=== PATIENT | male | born 2000 | race Two or more races ===

== ENCOUNTER 2024-04-15 15:26 | Inpatient (IN) | payer SELFPAY ==
[~2024-04-15] VITALS: Ht 160 cm; Wt 63.5 kg
[2024-04-15 15:49] LABS: BASOPHILS # (AUTO) 0.2 K/UL (0.0-0.2); BASOPHILS % (AUTO) 0.8 % (0.0-2.0); EOSINOPHILS # (AUTO) 0.1 K/uL (0.0-0.7); EOSINOPHILS % (AUTO) 0.5 % (0.0-7.0); HEMOGLOBIN 11.4 g/dL (12.5-16.3); LYMPHOCYTES # (AUTO) 2.1 K/uL (0.8-4.8); LYMPHOCYTES % (AUTO) 9.8 % (20.5-51.5); MEAN CORPUSCULAR HEMOGLOBIN 33.9 uug (23.8-33.4); MEAN CORPUSCULAR HGB CONC 35 g/dL (32.5-36.3); MEAN CORPUSCULAR VOLUME 98.2 fL (73.0-96.2); MONOCYTES # (AUTO) 1.4 K/uL (0.1-1.30); MONOCYTES % (AUTO) 6.6 % (0.0-11.0); NEUTROPHILS # (AUTO) 17.3 K/uL (1.8-8.9); NEUTROPHILS % (AUTO) 82.3 % (38.5-71.5); PLATELET COUNT (AUTO) 187 K/uL (152-348); RED BLOOD CELL COUNT(AUTO) 3.36 MIL/uL (4.06-5.63)
[2024-04-15 15:58] LABS: CARBON DIOXIDE 27 mmol/L (21-32); CHLORIDE 101 mmol/L (98-107); CREATININE 0.6 mg/dL (0.6-1.3); GLUCOSE 106 mg/dL (74-106); POTASSIUM 3.3 mmol/L (3.5-5.1); SODIUM SERUM 143 mmol/L (136-145); UREA NITROGEN, BLOOD 2 mg/dL (7-18)
[2024-04-15 16:00] LABS: DIFFERENTIAL COMMENT 1
[2024-04-15 16:07] LABS: ALANINE AMINOTRANSFERASE 110 U/L (16-63); ALBUMIN 2.8 g/dL (3.4-5.0); ALKALINE PHOSPHATASE 367 U/L (50-136); ASPARTATE AMINOTRANSFERASE 378 U/L (15-37); BILIRUBIN,DIRECT 0.5 mg/dL (0.0-0.2); BILIRUBIN,TOTAL 0.6 mg/dL (0.2-1.0); TOTAL PROTEIN, SERUM 9.6 g/dL (6.4-8.2)
[2024-04-15 16:08] LABS: ACETAMINOPHEN < 2.0 ug/mL (10-30)
[2024-04-15 16:10] LABS: LACTIC ACID 2.1 mmol/L (0.4-2.0)
[2024-04-15] MEDS: AZITHROMYCIN IV 500 MG in IV DEXTROSE 5% 250 ML IV ONE (16:30)
[2024-04-15] MEDS ORDERED: CEFTRIAXONE /D5W 50ML IVPB **ER PYXIS IV ONE (16:55)
[2024-04-15] MEDS ORDERED: AZITHROMYCIN 500MG/ D5W 250ML IVPB **ER PYXIS ONLY IV ONE (16:56)
[2024-04-15] MEDS: IV NORMAL SALINE 1000 ML BAG IV ONE (16:56)
[2024-04-15] MEDS: CEFTRIAXONE 1 G in IV DEXTROSE 5% 50 ML IV ONE (16:57)
[2024-04-15 17:40] LABS: *BILIRUBIN,URIN NEGATIVE (NEGATIVE); *BLOOD, URINE NEGATIVE (NEGATIVE); *CLARITY,URINE CLEAR (CLEAR); *COLOR,URINE YELLOW (YELLOW); *KETONES,URINE NEGATIVE (NEGATIVE); *PROTEIN,URINE NEGATIVE (NEGATIVE); *UROBILINOGEN,URINE 0.2 E.U./dl (NORMAL); LEUKOCYTE ESTERASE ,URINE NEGATIVE (NEGATIVE); NITRITE, URINE NEGATIVE (NEGATIVE); PH,URINE 6.5 (5.0-8.0); UGLUCOSE NEGATIVE (NEGATIVE)
[2024-04-15] MEDS ORDERED: REMEDY ESSENTIAL ZINC PASTE 113 GM TP PRN (19:30)
[2024-04-15] MEDS ORDERED: ONDANSETRON 4 MG/2 ML VIAL IV PRN (19:30)
[2024-04-15] MEDS ORDERED: ACETAMINOPHEN 325 MG TABLET PO PRN (19:30)
[2024-04-15 21:45] VITALS: BP 128/93; TEMP 98.7; O2SAT 95
[2024-04-15] MEDS ORDERED: VANCOMYCIN IV 200 ML ONE (21:57)
[2024-04-15] MEDS: IV LACTATED RINGERS SOLUTION 1,000 ML IV SCH (22:23)
[2024-04-15] MEDS: VANCOMYCIN IV 1,000 MG in IV NORMAL SALINE 250 ML IV ONE (22:39)
[2024-04-15 23:13] LABS: AMMONIA 283 umol/L (11-32)
[2024-04-15] MEDS ORDERED: THIAMINE HCL 200 MG/2 ML VIAL ONE ×2 (23:16→23:33)
[2024-04-15] MEDS: THIAMINE HCL 200 MG/2 ML VIAL IV ONE (23:35)
[2024-04-15 23:53] LABS: ETHANOL 567 MG/DL (0-10)
[2024-04-16] MEDS: CHLORDIAZEPOXIDE HCL 25 MG CAPSULE PO PRN (02:13)
[2024-04-16 03:19] VITALS: O2SAT 95
[2024-04-16 06:00] VITALS: BP 115/58; TEMP 98.4; O2SAT 95
[2024-04-16] MEDS: PANTOPRAZOLE SODIUM 40 MG TABLET.DR PO SCH (06:34)
[2024-04-16] MEDS: IV LACTATED RINGERS SOLUTION 1,000 ML IV PRN (06:35)
[2024-04-16 06:36] LABS: BASOPHILS # (AUTO) 0.1 K/UL (0.0-0.2); BASOPHILS % (AUTO) 0.7 % (0.0-2.0); EOSINOPHILS % (AUTO) 0.3 % (0.0-7.0); HEMATOCRIT 31.1 % (36.7-47.1); HEMOGLOBIN 10.7 g/dL (12.5-16.3); LYMPHOCYTES % (AUTO) 5.6 % (20.5-51.5); MEAN CORPUSCULAR HEMOGLOBIN 33.8 uug (23.8-33.4); MEAN CORPUSCULAR HGB CONC 34 g/dL (32.5-36.3); MEAN CORPUSCULAR VOLUME 98.3 fL (73.0-96.2); MONOCYTES # (AUTO) 0.8 K/uL (0.1-1.30); MONOCYTES % (AUTO) 4.4 % (0.0-11.0); PLATELET COUNT (AUTO) 142 K/uL (152-348); RED BLOOD CELL COUNT(AUTO) 3.17 MIL/uL (4.06-5.63); RED CELL DISTRIBUTION WIDTH 15.1 % (12.1-16.2)
[2024-04-16 06:48] LABS: ALANINE AMINOTRANSFERASE 100 U/L (16-63); ALBUMIN 2.6 g/dL (3.4-5.0); ALKALINE PHOSPHATASE 322 U/L (50-136); ASPARTATE AMINOTRANSFERASE 351 U/L (15-37); BILIRUBIN,DIRECT 0.5 mg/dL (0.0-0.2); BILIRUBIN,TOTAL 0.7 mg/dL (0.2-1.0); CALCIUM 7.1 mg/dL (8.5-10.1); CARBON DIOXIDE 28 mmol/L (21-32); CHLORIDE 100 mmol/L (98-107); CREATININE 0.5 mg/dL (0.6-1.3); GLUCOSE 90 mg/dL (74-106); MAGNESIUM 1.3 mg/dL (1.8-2.4); PHOSPHOROUS 2.9 mg/dL (2.5-4.9); POTASSIUM 3.3 mmol/L (3.5-5.1); SODIUM SERUM 139 mmol/L (136-145); TOTAL PROTEIN, SERUM 8.4 g/dL (6.4-8.2); UREA NITROGEN, BLOOD 2 mg/dL (7-18)
[2024-04-16] MEDS: THIAMINE HCL 100 MG TABLET PO SCH (08:05)
[2024-04-16] MEDS: MULTIVIT, IRON, MIN NO. 8, FA TABLET PO SCH (08:06)
[2024-04-16] MEDS: VANCOMYCIN IV 1,250 MG in IV DEXTROSE 5% 250 ML IV SCH (08:19)
[2024-04-16 08:27] LABS: DIFFERENTIAL COMMENT 1
[2024-04-16] MEDS ORDERED: VANCOMYCIN IV 1,250 MG in IV DEXTROSE 5% 250 ML IV SCH (09:00)
[2024-04-16] MEDS: POTASSIUM CHLORIDE 20 MEQ TAB.PRT.SR PO ONE (09:22)
[2024-04-16] MEDS: MAGNESIUM SULFATE/D5W 100 ML IV SCH (09:22)
[2024-04-16] MEDS ORDERED: THIA100T74 PO (13:45)
[2024-04-16] MEDS ORDERED: MULT-1119 PO (13:45)
[2024-04-16] MEDS ORDERED: CEFTRIAXONE 1 G in IV DEXTROSE 5% 50 ML IV SCH (17:00)
[2024-04-17 15:47] LABS: *BARBITURATE, URINE NEGATIVE (NEGATIVE)
[2024-04-17 15:48] LABS: *AMPHETAMINE, URINE NEGATIVE (NEGATIVE); *BENZODIAZEPINE, URINE NEGATIVE (NEGATIVE); *CANNABINOID, URINE NEGATIVE (NEGATIVE); *COCCAINE, URINE NEGATIVE (NEGATIVE); *OPIATE, URINE NEGATIVE (NEGATIVE); *PHENCYCLIDINE SCREEN,URINE NEGATIVE (NEGATIVE); FENTANYL, URINE NEGATIVE (NEGATIVE)
== END 2024-04-16 14:10 | disposition home or self-care (01) | DRG 917 ==
LOC: ER 15:26 → EDBD 20:52 → MEDSURG3 20:52
PROVIDERS: ADMIT Nurse Practitioner Acute Care; ATTEND Nurse Practitioner Acute Care
DX: T51.0X1A Toxic effect of ethanol, accidental (unintentional), initial encounter (principal); G92.8 Other toxic encephalopathy; E87.20 Acidosis, unspecified; D68.9 Coagulation defect, unspecified; Y90.8 Blood alcohol level of 240 mg/100 ml or more; E87.6 Hypokalemia; D72.829 Elevated white blood cell count, unspecified; Y92.488 Other paved roadways as the place of occurrence of the external cause; K76.9 Liver disease, unspecified; F10.129 Alcohol abuse with intoxication, unspecified; R79.89 Other specified abnormal findings of blood chemistry
CPT/HCPCS: 36415; 70450; 71045; 83605; 83735; 84100; 84484; 85025; 85730; 87040; G0378; G0480; J0456; J0696; J3370; J3411; J3475; J7040; J7050; J7120